=== PATIENT | male | born 1955 | race Caucasian/White ===

== ENCOUNTER 2023-04-11 07:18 | Day surgery (SDC) | payer MEDICARE, OTHER ==
[~2023-04-11] VITALS: Ht 175.3 cm; Wt 92.2 kg
[2023-04-11] VITALS (19 sets, daily range): BP systolic 112–169; BP diastolic 73–109
[~2023-04-11 07:18] MED LIST: ASPI81CH PO; Amlodipine Bes2.5 MG PO; FISH OIL + D31 EACH PO; LISI20 PO; LOSARTAN-HCTZ1 EAC2 PO; PRAV20 PO; TERB250 PO; WARF5 PO
[2023-04-11] MEDS ORDERED: MULTIPLE VITAM1 EACH PO (08:15)
--- NOTE | 2023-04-11 08:18 | NUR ---
PATIENT HAS RIDE HOME ARRANGED WITH HIS BROTHER, MASSIMO. AT BEDSIDE WITH PATIENT.
--- NOTE | 2023-04-11 08:34 | NUR ---
04/11/23 0834 Mello Rodgers HISTORY, CHART, MEDICATIONS AND ALLERGIES REVIEWED BEFORE START OF PROCEDURE. PATIENT CONFIRMS NPO STATUS AND AGREES WITH SCHEDULED PROCEDURE. 3-LEAD EKG REVIEWED WITH PHYSICIAN PRIOR TO START OF PROCEDURE. MONITOR INTACT WITH CONTINUOUS PULSE OXIMETRY,CAPNOGRAPHY, 3-LEAD EKG, INTERMITTENT BP. SUPPLEMENTAL O2 TO BE TITRATED THROUGHOUT PROCEDURE TO MAINTAIN O2 SATURATION ABOVE 90%. PATIENT DETERMINED TO BE ASA APPROPRIATE FOR PROPOFOL SEDATION PRIOR TO START OF PROCEDURE BY
--- NOTE | 2023-04-11 09:17 | NUR ---
REPORT REIEVED. PT SITTING UP IN BED TOLERING PO FLUDIS. DR STUBBS AND FAMILY AT BEDSIDE. VSS ON ROOM AIR
--- NOTE | 2023-04-11 09:35 | NUR ---
PT UP TP RESTROOM Patient up to Ambulate independently. Gait steady. Discharge instructions reviewed with patient. Patient verbalizes understanding. Copy given to patient to take home. Discharged via wheelchair to private car for ride home.
== END 2023-04-11 09:38 | disposition home or self-care (01) ==
LOC: ORSCMMR 07:18 → ORD 08:30 → ORSCMMR 08:30
PROVIDERS: Internal Medicine Gastroenterology
PROC: 0DJD8ZZ Inspection of Lower Intestinal Tract, Via Natural or Artificial Opening Endoscopic (ICD-10-PCS; principal; 2023-04-11 08:30)
DX: Z12.11 Encounter for screening for malignant neoplasm of colon (principal); Z86.010 Personal history of colon polyps; Z80.0 Family history of malignant neoplasm of digestive organs; Z86.73 Personal history of transient ischemic attack (TIA), and cerebral infarction without residual deficits; I10 Essential (primary) hypertension; E78.00 Pure hypercholesterolemia, unspecified; Z79.82 Long term (current) use of aspirin; Z79.899 Other long term (current) drug therapy
CPT/HCPCS: J2704; J7120